=== PATIENT | male | born 1995 | race Caucasian/White ===

== ENCOUNTER 2019-10-06 09:33 | Emergency (ER) | payer OTHER ==
--- NOTE | 2019-10-06 10:03 | ED Physician Documentation ---
History of Present Illness - Stated complaint Stated Complaint: BACK PX - Chief complaint Chief Complaint: Back Pain - History obtained from History obtained from: Patient - History of Present Illness Timing: How many weeks ago (1) Pain level max: 5 Pain level now: 5 - Additonal information Additional information: 24-year-old male presents to the emergency department stating that he has had right lower back pain for the past week. Worse with movement and better with rest. He recently moved and was lifting boxes. No fevers. No blood in the urine. No dysuria. He states that he has been taking aspirin and ibuprofen for this. Noted a small amount of bright red blood in his stool this morning. No abdominal pain. No trauma. Does not use IV drugs. Nonradiating. No numbness or tingling. No incontinence. Review of Systems Constitutional: denies: Fever, Chills Respiratory: denies: Cough GI: denies: Nausea, Vomiting, Diarrhea : denies: Dysuria, Frequency, Hesitancy, Incontinent Skin: denies: Rash Musculoskeletal: denies: Neck pain Neurologic: denies: Focal weakness, Numbness PD PAST MEDICAL HISTORY - Past Medical History Past Medical History: No - Past Surgical History Past Surgical History: No - Present Medications Home Medications: Ambulatory Orders Medication Instructions Recorded Confirmed Cyclobenzaprine [Flexeril] 10 mg PO TID PRN #20 tablet 10/06/19 Esomeprazole Magnesium [Nexium] 20 mg PO DAILY #14 capsule. 10/06/19 Meloxicam [Mobic] 15 mg PO DAILY PRN #20 tablet 10/06/19 - Allergies Allergies/Adverse Reactions: Allergies Allergy/AdvReac Type Severity Reaction Status Date / Time No Known Drug Allergies Allergy Verified 10/06/19 09:40 - Social History Does the pt smoke?: No Smoking Status: Current every day smoker Does the pt drink ETOH?: No Does the pt have substance abuse?: No - Immunizations Immunizations are current?: Yes PD ED PE NORMAL - Vitals Vital signs reviewed: Yes - General General: Alert and oriented X 3, No acute distress, Well developed/nourished - HEENT HEENT: Moist mucous membranes - Neck Neck: Supple, no meningeal sign - Cardiac Cardiac: RRR, Strong equal pulses - Respiratory Respiratory: No respiratory distress, Clear bilaterally - Abdomen Abdomen: Soft, Non tender, Non distended - Back Back: No CVA TTP, No spinal TTP (No midline tenderness palpation or percussion. There is paraspinal spasm right low lumbar. Reproduces his pain.) - Derm Derm: Warm and dry - Extremities Extremities: No edema, No calf tenderness / cord, Other (Normal bilateral lower extremity patellar and ankle jerk reflexes. Normal great toe extension bilaterally. no saddle anesthesia) - Neuro Neuro: Alert and oriented X 3, No motor deficit, No sensory deficit - Psych Psych: Normal mood, Normal affect Results - Vitals Vitals: Vital Signs - 24 hr 10/06/19 09:38 Temperature 36.8 C Heart Rate 86 Respiratory 18 Rate Blood Pressure 127/71 O2 Saturation 99 Oxygen O2 Source Room air - Labs Labs: Laboratory Tests 10/06/19 10/06/19 10/06/19 09:52 09:52 10:45 WBC 3.8 L RBC 4.41 L Hgb 14.0 Hct 40.6 L MCV 92.1 MCH 31.7 H MCHC 34.5 RDW 12.4 Plt Count 212 MPV 10.3 Neut # (Auto) 1.5 Lymph # (Auto) 1.7 [place] # (Auto) 0.5 Eos # (Auto) 0.1 Baso # (Auto) 0.0 Absolute Nucleated RBC 0.00 Nucleated RBC % 0.0 Sodium 135 Potassium 4.0 Chloride 103 Carbon Dioxide 27 Anion Gap 5.0 L BUN 13 Creatinine 0.8 Estimated GFR (MDRD) 118 Glucose 85 Calcium 9.3 Total Bilirubin 0.8 AST 19 ALT 15 Alkaline Phosphatase 50 Total Protein 7.4 Albumin 4.4 Globulin 3.0 Albumin/Globulin Ratio 1.5 Lipase 34 Urine Color YELLOW Urine Clarity CLEAR Urine pH 7.0 Ur Specific [place] 1.020 Urine Protein NEGATIVE Urine Glucose (UA) NEGATIVE Urine Ketones NEGATIVE Urine Occult Blood NEGATIVE Urine Nitrite NEGATIVE Urine Bilirubin NEGATIVE Urine Urobilinogen 0.2 (NORMAL) Ur Leukocyte Esterase NEGATIVE Ur Microscopic Review NOT INDICATED Urine Culture Comments NOT INDICATED PD MEDICAL DECISION MAKING - ED course Complexity details: reviewed results, re-evaluated patient, considered differential, d/w patient ED course: Patient with what appears to be musculoskeletal back pain. Will place on medication for home. We will place him on a PPI as well due to the large amount of aspirin and ibuprofen he has been taking. No evidence of cauda equina, epidural abscess. Abdomen is soft, nontender nondistended. Likely that the small blood in the stool is from his use of NSAIDs and aspirin together. Patient counseled regarding signs and symptoms for which I believe and urgent re-evaluation would be necessary. Patient with good understanding of and agreement to plan and is comfortable going home at this time This document was made in part using voice recognition software. While efforts are made to proofread this document, sound alike and grammatical errors may occur. Departure - Departure Disposition: 01 Home, Self Care Clinical Impression: Lower GI bleed Low back strain Qualifiers: Encounter type: initial encounter Qualified Code(s): S39.012A - Strain of muscle, fascia and tendon of lower back, initial encounter Condition: Good Instructions: ED Spasm Back No Trauma, ED Neck Back Pain General Follow-Up: Your,doctor in 1 week [Other] Prescriptions: Cyclobenzaprine [Flexeril] 10 mg PO TID PRN #20 tablet PRN Reason: Spasms Esomeprazole Magnesium [Nexium] 20 mg PO DAILY #14 capsule. Meloxicam [Mobic] 15 mg PO DAILY PRN #20 tablet PRN Reason: pain Comments: Return if you worsen. Use the medications as prescribed. Stop taking any [id number] medications. Follow-up with your doctor for further care. Do not drive or operate heavy machinery while taking the Flexeril. This should improve over the next week or so. Continue gentle stretching at home.
[2019-10-06 10:04] LABS: EOSINOPHILS # (AUTO) 0.1 10^3/uL (0.0-0.7); EOSINOPHILS % (AUTO) 1.8 %; LYMPHOCYTES # (AUTO) 1.7 10^3/uL (1.5-3.5); LYMPHOCYTES % (AUTO) 45.3 %; MEAN CORPUSCULAR HEMOGLOBIN 31.7 pg (27.0-31.0); MEAN CORPUSCULAR HGB CONC 34.5 g/dL (32.0-36.0); MEAN CORPUSCULAR VOLUME 92.1 fL (80.0-94.0); MEAN PLATELET VOLUME 10.3 fL (7.4-11.4); MONOCYTES # (AUTO) 0.5 10^3/uL (0.0-1.0); NEUTROPHILS # (AUTO) 1.5 10^3/uL (1.5-6.6); NEUTROPHILS % (AUTO) 38.9 %; PLT - PLATELET COUNT 212 10^3/uL (130-450); RED BLOOD COUNT 4.41 10^6/uL (4.70-6.10); RED CELL DISTRIBUTION WIDTH 12.4 % (12.0-15.0); WHITE BLOOD COUNT 3.8 x10^3/uL (4.8-10.8)
[2019-10-06] MEDS: KETOROLAC 30 MG/ML VIAL IVP STA (10:08)
[2019-10-06 10:43] LABS: ALBUMIN 4.4 g/dL (3.2-5.5); ALBUMIN/GLOBULIN RATIO 1.5 (1.0-2.2); BILIRUBIN,TOTAL 0.8 mg/dL (0.2-1.0); CALCIUM 9.3 mg/dL (8.5-10.3); CREATININE 0.8 mg/dL (0.6-1.2); TOTAL PROTEIN 7.4 g/dL (6.7-8.2)
[2019-10-06 10:54] LABS: BILIRUBIN,URINE NEGATIVE (NEGATIVE); GLUCOSE, URINE (UA) NEGATIVE (NEGATIVE); KETONES,URINE (UA) NEGATIVE (NEGATIVE); LEUKOCYTE ESTERASE, URINE NEGATIVE (NEGATIVE); NITRITE,URINE NEGATIVE (NEGATIVE); OCCULT BLOOD,URINE NEGATIVE (NEGATIVE); PROTEIN,URINE NEGATIVE (NEGATIVE); UROBILINOGEN,URINE 0.2 (NORMAL) E.U./dL (NORMAL)
[2019-10-06 11:03] LABS: CLARITY,URINE CLEAR (CLEAR)
[2019-10-06 11:30] VITALS: BP 120/74
== END 2019-10-06 11:30 | disposition home or self-care (01) ==
LOC: ED 09:33
DX: S39.012A Strain of muscle, fascia and tendon of lower back, initial encounter (principal); X50.0XXA Overexertion from strenuous movement or load, initial encounter; Y93.89 Activity, other specified; K92.1 Melena; F17.200 Nicotine dependence, unspecified, uncomplicated
CPT/HCPCS: 36415; 80053; 81001; 81003; 83690; 85025; 87086; 96374; 99284

== ENCOUNTER 2019-12-10 01:02 | Emergency (ER) | payer OTHER ==
[2019-12-10] MEDS ORDERED: SULFAM/TRIM 800/160 Prepack 2 PO ONE (03:04)
--- NOTE | 2019-12-10 03:07 | ED Physician Documentation ---
History of Present Illness - Stated complaint Stated Complaint: LIP LAC/FALL - Chief complaint Chief Complaint: Laceration - History obtained from History obtained from: Patient - History of Present Illness Timing: How many days ago (2) - Additonal information Additional information: 24-year-old male was skateboarding 2 days ago when he fell he struck his face and chin on the ground. He did not get knocked out, he does not have any loose teeth, he has an abrasion to the columela and this now appears to be infected. It is draining some pus. He denies any neck pain or injury anywhere else from the fall. Review of Systems Constitutional: denies: Fever Eyes: denies: Decreased vision Ears: denies: Ear pain Nose: denies: Congestion Throat: denies: Sore throat Respiratory: denies: Dyspnea, Cough GI: denies: Nausea, Vomiting PD PAST MEDICAL HISTORY - Past Surgical History Past Surgical History: No - Present Medications Home Medications: Ambulatory Orders Medication Instructions Recorded Confirmed Sulfamethoxazole/Trimethoprim 1 each PO BID #10 tablet 12/10/19 [Sulfamethoxazole-Tmp Ds Tablet] - Allergies Allergies/Adverse Reactions: Allergies Allergy/AdvReac Type Severity Reaction Status Date / Time No Known Drug Allergies Allergy Verified 12/10/19 01:24 - Social History Does the pt smoke?: No Smoking Status: Current every day smoker Does the pt drink ETOH?: No Does the pt have substance abuse?: No - Immunizations Immunizations are current?: Yes PD ED PE NORMAL - Vitals Vital signs reviewed: Yes (normal ) - General General: Alert and oriented X 3, No acute distress, Well developed/nourished - HEENT HEENT: PERRL, EOMI, Other (There is an area covering the columella that pus. This is wiped off to reveal granular tissue in the well of the columella. There is no significant extention of erythema or swelling. The area looks superficially infected. ) - Neck Neck: Supple, no meningeal sign, No bony TTP - Respiratory Respiratory: No respiratory distress - Derm Derm: Normal color, Warm and dry, No rash - Extremities Extremities: No deformity, No edema - Neuro Neuro: Alert and oriented X 3, surgery assistant 2-12 intact, No motor deficit, No sensory deficit, Normal speech Eye Opening: Spontaneous Motor: Obeys Commands Verbal: Oriented GCS Score: 15 - Psych Psych: Normal mood, Normal affect Results - Vitals Vitals: Vital Signs - 24 hr 12/10/19 01:05 Temperature 36.8 C Heart Rate 71 Respiratory 16 Rate Blood Pressure 119/79 O2 Saturation 97 Oxygen O2 Source Room air PD MEDICAL DECISION MAKING - ED course Complexity details: reviewed old records, considered differential, d/w patient ED course: 24-year-old male with a superficial skin avulsion and evidence of early infection has no allergies and we will place him on a short course of Septra. Departure - Departure Disposition: 01 Home, Self Care Clinical Impression: Abrasion of skin with infection Condition: Stable Instructions: ED Abrasion, ED Staph Infec Abx Tx Only Follow-Up: DONNY Muro [Provider Group] Prescriptions: Sulfamethoxazole/Trimethoprim [Sulfamethoxazole-Tmp Ds Tablet] 1 each PO BID #10 tablet
[2019-12-10 03:21] VITALS: BP 117/65
== END 2019-12-10 03:21 | disposition home or self-care (01) ==
LOC: ED 01:02
DX: S00.31XA Abrasion of nose, initial encounter (principal); L08.9 Local infection of the skin and subcutaneous tissue, unspecified; V00.131A Fall from skateboard, initial encounter; Y93.51 Activity, roller skating (inline) and skateboarding
CPT/HCPCS: 99282; 99284

== ENCOUNTER 2021-05-30 15:06 | Outpatient (CLI) | payer OTHER | END 2021-05-30 15:07 | disposition critical access hospital (66) | LOC: EMS 15:06 | DX: F41.9 Anxiety disorder, unspecified (principal) | CPT/HCPCS: A0425; A0429 ==

== ENCOUNTER 2021-05-30 15:27 | Emergency (ER) | payer OTHER ==
[2021-05-30] MEDS ORDERED: LORazepam 2 MG/ML VIAL IM STA (15:37)
--- NOTE | 2021-05-30 15:38 | ED Physician Documentation ---
PD HPI MHE - Stated complaint Stated Complaint: ANXIETY - Chief complaint Chief Complaint: MHE - History obtained from History obtained from: Patient - Additional information Additional information: 25-year-old gentleman with longstanding anxiety. He was on Lexapro last year for it. Its been getting worse lately and he restarted the Lexapro that he had left over about a week ago. The anxiety was already getting worse and he feels just terrible today and incredibly anxious. A lot of it revolves around his father and son coming to visit in a few days. No SI or HI. Review of Systems Constitutional: denies: Fever, Chills Cardiac: reports: Reviewed and negative Respiratory: reports: Reviewed and negative PD PAST MEDICAL HISTORY - Past Surgical History Past Surgical History: No - Present Medications Home Medications: Ambulatory Orders Medication Instructions Recorded Confirmed Escitalopram [Lexapro] 10 mg PO DAILY 05/30/21 05/30/21 LORazepam [Ativan] 1 mg PO TID PRN #12 tablet 05/30/21 traZODone [Desyrel] 50 mg PO HS PRN 05/30/21 05/30/21 - Allergies Allergies/Adverse Reactions: Allergies Allergy/AdvReac Type Severity Reaction Status Date / Time No Known Drug Allergies Allergy Verified 05/30/21 15:37 - Social History Does the pt smoke?: No Smoking Status: Current every day smoker Does the pt drink ETOH?: No Does the pt have substance abuse?: No - Immunizations Immunizations are current?: Yes PD ED PE NORMAL - Vitals Vital signs reviewed: Yes - General General: Alert and oriented X 3, Other (He is overtly anxious and tearful) - HEENT HEENT: PERRL, EOMI - Derm Derm: Normal color, Warm and dry - Neuro Neuro: Alert and oriented X 3, Normal speech Results - Vitals Vitals: Vital Signs - 24 hr 05/30/21 05/30/21 05/30/21 15:30 15:33 16:00 Temperature 36.2 C L Heart Rate 82 84 69 Respiratory 16 22 16 Rate Blood Pressure 127/102 H 129/112 H 136/90 H O2 Saturation 99 99 99 Oxygen O2 Source Room air PD MEDICAL DECISION MAKING - ED course ED course: 25yo gentleman presents with an anxiety attack. He received 1 mg of IM Ativan and was feeling much better. He declined to talk to the social sciences instructor and is not interested in inpatient therapy. Departure - Departure Disposition: 01 Home, Self Care Clinical Impression: Anxiety Condition: Good Record reviewed to determine appropriate education?: Yes Instructions: ED Panic Attack Prescriptions: LORazepam [Ativan] 1 mg PO TID PRN #12 tablet PRN Reason: Anxiety Comments: Prescription was sent electronically to [facility] in [place], do not drink or drive while taking the prescription anxiety medication. While this medication is effective for short-term relief of anxiety it is not a good long-term option and you should continue the Lexapro and start counseling which you already planning to do.
[2021-05-30 16:04] VITALS: BP 136/90
== END 2021-05-30 16:15 | disposition home or self-care (01) ==
LOC: EDUNIT# → ED 15:27
DX: F41.9 Anxiety disorder, unspecified (principal)
CPT/HCPCS: 96372; 99283; J2060

== ENCOUNTER 2021-08-10 19:24 | Outpatient (CLI) | payer OTHER | END 2021-08-10 19:25 | disposition critical access hospital (66) | LOC: EMS 19:24 | DX: F41.9 Anxiety disorder, unspecified (principal) | CPT/HCPCS: A0425; A0429 ==

== ENCOUNTER 2021-08-10 19:41 | Emergency (ER) | payer OTHER ==
[2021-08-10] MEDS ORDERED: LORazepam 2 MG/ML VIAL IM STA (19:48)
--- NOTE | 2021-08-10 19:50 | ED Physician Documentation ---
PD HPI MHE - Stated complaint Stated Complaint: PANIC ATTACK - History obtained from History obtained from: Patient - History of Present Illness Primary symptom: Anxiety Timing - onset: Today Contributing factors: Family - Additional information Additional information: c/o generalized anxiety since earlier today, although he seems to be describing a subacute component as well. "Can't calm down" (per patient). Contributing factor of recent deaths in family and "my mother is dying"; he returned from [place] yesterday where most of his family resides and he is having difficulty coping with the above issues. Review of Systems Cardiac: reports: Reviewed and negative Respiratory: reports: Reviewed and negative GI: reports: Reviewed and negative Psychiatric: reports: Anxiety, Insomnia. denies: Depressed, Suicidal, Homicidal, Hallucinations, Delusions PD PAST MEDICAL HISTORY - Past Medical History Cardiovascular: None Respiratory: None Neuro: None Endocrine/Autoimmune: None GI: None : None HEENT: None Psych: Anxiety Musculoskeletal: None Derm: None - Past Surgical History Past Surgical History: No - Present Medications Home Medications: Ambulatory Orders Medication Instructions Recorded Confirmed Escitalopram [Lexapro] 10 mg PO DAILY 05/30/21 08/10/21 LORazepam [Ativan] 1 mg PO TID PRN #12 tablet 05/30/21 08/10/21 traZODone [Desyrel] 50 mg PO HS PRN 05/30/21 08/10/21 LORazepam [Ativan] 0.5 mg PO Q6H PRN #14 tablet 08/10/21 - Allergies Allergies/Adverse Reactions: Allergies Allergy/AdvReac Type Severity Reaction Status Date / Time No Known Drug Allergies Allergy Verified 08/10/21 19:52 - Social History Does the pt smoke?: No Smoking Status: Current every day smoker Does the pt drink ETOH?: No Does the pt have substance abuse?: No - Immunizations Immunizations are current?: Yes PD ED PE NORMAL - Vitals Vital signs reviewed: Yes - General General: Alert and oriented X 3, Well developed/nourished, Other (crying) - Cardiac Cardiac: RRR, No murmur - Respiratory Respiratory: No respiratory distress, Clear bilaterally - Neuro Eye Opening: Spontaneous Motor: Obeys Commands Verbal: Oriented GCS Score: 15 PD ED PE EXPANDED - Psych Psych: Depressed, Tearful Results - Vitals Vitals: Vital Signs - 24 hr 08/10/21 08/10/21 19:50 21:10 Temperature 36 C L Heart Rate 99 86 Respiratory 18 18 Rate Blood Pressure 112/93 H 125/76 O2 Saturation 100 98 Oxygen O2 Source Room air PD MEDICAL DECISION MAKING - ED course Complexity details: re-evaluated patient, considered differential, d/w patient ED course: similar [facility] ED visit 2 months ago, chart reflects that patient responded well to IM 1mg lorazepam, and he is given this medication tonight in ED. On reevaluation, he is awake , alert, and oriented x 3. He is no longer crying and reports feeling significantly improved. He again denies SI, HI, AH. He says he has been noticing some patterns on the hospital curtain appear to move at times but otherwise does not describe/endorse visual hallucinations. He is comfortable with d/c home at this time. Rx for lorazepam submitted to his pharmacy. He is encouraged to return if he feels need for reevaluation, such as for feeling overwhelmed (medications not effective), has thoughts of self-harm, has increasing VH or develops AH. Departure - Departure Disposition: 01 Home, Self Care Clinical Impression: Anxiety Condition: Good Instructions: ED Panic Attack Follow-Up: DONNY Muro [Provider Group] (Call in the morning to arrange for next available appointment) Prescriptions: LORazepam [Ativan] 0.5 mg PO Q6H PRN #14 tablet PRN Reason: Anxiety Comments: A prescription for lorazepam (Ativan) has been electronically submitted to [facility] pharmacy in [place]. This is meant to be used only as needed for anxiety (follow label instructions). It is intended only as a brief/temporary aid for your severe anxiety episodes. Discharge Date/Time: 08/10/21 21:10
[2021-08-10] MEDS ORDERED: LORazepam 0.5 MG TABLET PO STA (21:00)
[2021-08-10 21:11] VITALS: BP 125/76
== END 2021-08-10 21:10 | disposition home or self-care (01) ==
LOC: EDUNIT# → ED 19:41
DX: F41.9 Anxiety disorder, unspecified (principal); F17.200 Nicotine dependence, unspecified, uncomplicated
CPT/HCPCS: 96372; 99282; 99283; A9270; J2060

== ENCOUNTER 2023-01-31 13:45 | Outpatient (CLI) | payer OTHER ==
[2023-01-31 17:44] LABS: BASOPHILS % (AUTO) 0.7 %; EOSINOPHILS % (AUTO) 0.2 %; HCT - HEMATOCRIT 44.1 % (42.0-52.0); HGB - HEMOGLOBIN 14.8 g/dL (14.0-18.0); LYMPHOCYTES # (AUTO) 1.2 10^3/uL (1.5-3.5); LYMPHOCYTES % (AUTO) 29.6 %; MEAN CORPUSCULAR HEMOGLOBIN 30.6 pg (27.0-31.0); MEAN CORPUSCULAR HGB CONC 33.6 g/dL (32.0-36.0); MEAN CORPUSCULAR VOLUME 91.1 fL (80.0-94.0); MEAN PLATELET VOLUME 11.4 fL (7.4-11.4); MONOCYTES # (AUTO) 0.4 10^3/uL (0.0-1.0); MONOCYTES % (AUTO) 9.1 %; NEUTROPHILS # (AUTO) 2.4 10^3/uL (1.5-6.6); NEUTROPHILS % (AUTO) 60.2 %; PLT - PLATELET COUNT 274 10^3/uL (130-450); RED BLOOD COUNT 4.84 10^6/uL (4.70-6.10); RED CELL DISTRIBUTION WIDTH 12.1 % (12.0-15.0); WHITE BLOOD COUNT 4.1 x10^3/uL (4.8-10.8)
[2023-01-31 18:39] LABS: ALBUMIN/GLOBULIN RATIO 1.7 (1.0-2.2); BILIRUBIN,TOTAL 0.5 mg/dL (0.2-1.0); CALCIUM 10.1 mg/dL (8.5-10.3); CRP - C-REACTIVE PROTEIN 0.5 mg/dL (<0.5); POTASSIUM 4.2 mmol/L (3.5-4.5); TOTAL PROTEIN 7.9 g/dL (6.4-8.9)
== END 2023-01-31 14:00 | disposition home or self-care (01) ==
LOC: LAB.N 13:45
PROVIDERS: ATTEND Registered Nurse
DX: R19.7 Diarrhea, unspecified (principal); R11.0 Nausea; R50.9 Fever, unspecified
CPT/HCPCS: 36415; 80053; 83690; 85025; 86140

== ENCOUNTER 2023-07-29 07:43 | Outpatient (CLI) | payer OTHER | END 2023-07-29 23:59 | disposition critical access hospital (66) | LOC: EMS 07:43 | DX: R06.03 Acute respiratory distress (principal); R50.9 Fever, unspecified | CPT/HCPCS: A0425; A0427 ==

== ENCOUNTER 2023-07-29 08:02 | Emergency (ER) | payer OTHER ==
[2023-07-29] MEDS: ACETAMINOPHEN 325 MG TABLET PO STA (08:35)
--- NOTE | 2023-07-29 09:00 | XRAY Report ---
PROCEDURE: Chest 2V INDICATIONS: cough/SOA TECHNIQUE: 2 views of the chest were acquired. COMPARISON: None. FINDINGS: Surgical changes and devices: None. Lungs and pleura: No pleural effusions or pneumothorax. Lungs are clear. Mediastinum: Mediastinal contours appear normal. Heart size is normal. Bones and chest wall: No suspicious bony lesions. Overlying soft tissues appear unremarkable. IMPRESSION: No acute cardiopulmonary process. Reviewed by: Alba Gautam MD on 07/29/2023 8:58 AM [facility] Approved by: Alba Gautam MD on 07/29/2023 8:58 AM [facility] Station ID: [id number]
[2023-07-29 09:04] LABS: B. PARAPERTUSSIS- RESP PCR PAN NOT DETECTED; B. PERTUSSIS- RESP PCR PANEL NOT DETECTED; C. PNEUMONIAE- RESP PCR PANEL NOT DETECTED; CORONAVIRUS 229E-RESP PCR NOT DETECTED; CORONAVIRUS HKU1-RESP PCR NOT DETECTED; CORONAVIRUS NL63-RESP PCR NOT DETECTED; CORONAVIRUS OC43-RESP PCR NOT DETECTED; HUMAN METAPNEUMOVIRUS DETECTED; INFLUENZA A- RESP PCR PANEL NOT DETECTED; INFLUENZA B - RESP PCR PANEL NOT DETECTED; M. PNEUMONIAE- RESP PCR PANEL NOT DETECTED; PARAINFLUENZA VIRUS 1 NOT DETECTED; PARAINFLUENZA VIRUS 2 NOT DETECTED; PARAINFLUENZA VIRUS 3 NOT DETECTED; PARAINFLUENZA VIRUS 4 NOT DETECTED; RHINOVIRUS/ENTEROVIRUS NOT DETECTED; RSV- RESP PCR PANEL NOT DETECTED; SARS-CoV-2 -RESP PCR PANEL NOT DETECTED
--- NOTE | 2023-07-29 09:13 | ED Physician Documentation ---
PD HPI URI - Stated complaint Stated Complaint: SOA - Chief complaint Chief Complaint: Resp - History obtained from History obtained from: Patient - Additional information Additional information: Patient is a 28-year-old male with a history of anxiety presenting for evaluation of 2 days of cough and congestion and feeling short of air. He recently returned from [place] yesterday. Patient has been using his inhaler without any significant improvement. He has not tried any other [id number] medications. He feels chills. Cough is dry but sometimes does have some clear to yellow sputum.Unknown of any sick contacts. Review of Systems Constitutional: reports: Chills Nose: reports: Congestion Cardiac: denies: Chest pain / pressure Respiratory: reports: Dyspnea, Cough GI: denies: Abdominal Pain, Vomiting, Diarrhea PD PAST MEDICAL HISTORY - Past Medical History Cardiovascular: None Respiratory: None Neuro: None Endocrine/Autoimmune: None GI: None : None HEENT: None Psych: Anxiety Musculoskeletal: None Derm: None - Past Surgical History Past Surgical History: No - Present Medications Home Medications: Ambulatory Orders Medication Instructions Recorded Confirmed Escitalopram [Lexapro] 10 mg PO DAILY 05/30/21 08/10/21 LORazepam [Ativan] 1 mg PO TID PRN #12 tablet 05/30/21 08/10/21 traZODone [Desyrel] 50 mg PO HS PRN 05/30/21 08/10/21 LORazepam [Ativan] 0.5 mg PO Q6H PRN #14 tablet 08/10/21 - Allergies Allergies/Adverse Reactions: Allergies Allergy/AdvReac Type Severity Reaction Status Date / Time No Known Drug Allergies Allergy Verified 07/29/23 08:10 - Social History Does the pt smoke?: Yes Smoking Status: Current every day smoker Does the pt drink ETOH?: No Does the pt have substance abuse?: No - Immunizations Immunizations are current?: Yes PD ED PE NORMAL - General General: Alert and oriented X 3, No acute distress, Well developed/nourished - HEENT HEENT: Atraumatic, Moist mucous membranes, Pharynx benign, Other (Rhinorrhea ). No: Ears normal (Serous otitis bilaterally) - Neck Neck: Supple, no meningeal sign - Cardiac Cardiac: Strong equal pulses, Other (Tachycardic in low 100s, normal rhythm) - Respiratory Respiratory: No respiratory distress, Clear bilaterally - Abdomen Abdomen: Soft, Non tender, Non distended - Derm Derm: Warm and dry - Extremities Extremities: No edema, No calf tenderness / cord - Neuro Neuro: Normal speech Results - Vitals Vitals: Vital Signs - 24 hr 07/29/23 07/29/23 07/29/23 08:07 08:33 09:05 Temperature 38.8 C H 37.6 C Heart Rate 109 H 94 Respiratory 24 22 Rate Blood Pressure 102/87 H 103/67 O2 Saturation 99 100 07/29/23 09:23 Temperature Heart Rate 99 Respiratory 18 Rate Blood Pressure 133/81 H O2 Saturation 96 Oxygen O2 Source Room air - Labs Labs: Laboratory Tests 07/29/23 08:05 Nasal Adenovirus (PCR) NOT DETECTED Nasal B. parapertussis DNA (PCR) NOT DETECTED Nasal Coronavir 229E PCR NOT DETECTED Nasal Coronavir HKU1 PCR NOT DETECTED Nasal Coronavir NL63 PCR NOT DETECTED Nasal Coronavir OC43 PCR NOT DETECTED Nasal Enterovir/Rhinovir PCR NOT DETECTED Nasal Influenza B PCR NOT DETECTED Nasal Influenza A PCR NOT DETECTED Nasal Parainfluen 1 PCR NOT DETECTED Nasal Parainfluen 2 PCR NOT DETECTED Nasal Parainfluen 3 PCR NOT DETECTED Nasal Parainfluen 4 PCR NOT DETECTED Nasal RSV (PCR) NOT DETECTED Nasal B.pertussis DNA PCR NOT DETECTED Nasal C.pneumoniae (PCR) NOT DETECTED Yvon Human Metapneumo PCR DETECTED A Nasal M.pneumoniae (PCR) NOT DETECTED Nasal SARS-CoV-2 (PCR) NOT DETECTED PD Medical Decision Making - ED course Complexity details: reviewed results, d/w patient ED course: Patient with URI symptoms for the past 2 days after returning from a trip. Slightly tachycardic here but does appear anxious. Doubt pulmonary embolism. Clinically has URI symptoms with cough and congestion which have both been productive. Lung sounds are clear. Normal oxygenation. Chest x-ray which I reviewed is negative for pneumonia. Respiratory swab is positive for human metapneumovirus. Patient is feeling better here and counseled on continued supportive care as well as concerning symptoms to return for. Departure - Departure Disposition: 01 Home, Self Care Clinical Impression: URI with cough and congestion, Infection due to human metapneumovirus (hMPV) Condition: Stable Instructions: ED Viral Syndrome Comments: Your chest x-ray is clear and does not show signs of pneumonia. You have tested positive for a virus called human metapneumovirus which causes symptoms of the common cold. Please continue with acetaminophen or ibuprofen as needed for fevers or chills, plenty of fluids for hydration as well as rest. You can also try [id number] Flonase to help with nasal congestion. Return to the emergency department with any worsening symptoms. Forms: PCP List Discharge Date/Time: 07/29/23 09:29
[2023-07-29 09:30] VITALS: BP 133/81; O2SAT 96
== END 2023-07-29 09:29 | disposition home or self-care (01) ==
LOC: EDUNIT# → ED 08:02
DX: J06.9 Acute upper respiratory infection, unspecified (principal); B97.81 Human metapneumovirus as the cause of diseases classified elsewhere; F17.200 Nicotine dependence, unspecified, uncomplicated; Z11.52 Encounter for screening for COVID-19
CPT/HCPCS: 71046; 87633; 99283; 99284; A9270